=== PATIENT | male | born 1955 | race Caucasian/White ===

== ENCOUNTER 2023-11-17 05:54 | Inpatient (IN) | payer OTHER, SELFPAY ==
[2023-10-29 08:48] VITALS: BMI 38.6
[2023-11-17] VITALS (16 sets, daily range): BP systolic 103–148; BP diastolic 58–93; PULSE 63–74; RESP 11–21; TEMP 36.1–36.3; O2SAT 94–99; BMI 37.5
[2023-11-17] MEDS: ACETAMINOPHEN 325 MG TABLET 975 MG PO (06:59)
[2023-11-17] MEDS: LACTATED RINGERS 1,000 ML 42 ML IV ×3 (06:59→13:16)
--- NOTE | 2023-11-17 07:48 | PM.HP.1 ---
History of Present Illness History of Present Illness Date Patient Seen: 11/17/23 Time Patient Seen: 07:50 Date of Onset of Symptoms: 02/14/16 Chief complaint: bilateral leg pain, back pain Narrative: Mr. Chong presents to the office today referred by Dr. Martinez for lumbar radiculopathy referred by Dr. Martinez for consultation. He states he has pain and numbness in the left hip and leg that started in June 2014 and has been worsening ever since. He states the pain is in his left hip and is most noticeable when he is walking. He has numbness in the left upper leg and the left foot, he is unable to move his toes and has extreme difficulty walking. He wears bilateral AFO for bilateral chronic drop foot. His pain is in both his lower back and his right leg/hip. He has significant limitation performing activities of daily living due to his pain. He is not happy with his current quality of life and is wanting to see whether he will benefit from additional surgical treatment. He denies any bowel or bladder symptoms. [facility] Medical History History of cardioversion A-fib (~2018) Spinal stenosis, lumbar region with neurogenic claudication Hypothyroidism Acid reflux HTN (hypertension) MONSERRAT (obstructive sleep apnea) Hearing impaired Mild cataract RLS (restless legs syndrome) Surgical History History of cardiac radiofrequency ablation (05/2022) History of urologic surgery (2016) Hx of arthroscopy of left knee (2003) Hx of laminectomy (2016) Hx of laminectomy (2014) Hx of hernia repair (2016) Social History household members: significant other Smoking Status: Former smoker alcohol intake: current Meds Home Medications and Allergies Home Medications Medication Instructions Recorded Confirmed Type gabapentin 600 mg tablet 1,200 mg PO BEDTIME 10/29/23 11/17/23 History gabapentin 600 mg tablet 600 mg PO BID 10/29/23 11/17/23 History hydrocodone 7.5 mg-acetaminophen 1 tab PO DAILY 10/29/23 11/17/23 History 325 mg tablet ibuprofen 200 mg tablet (Advil) 200 - 400 mg PO BID PRN Pain 10/29/23 11/17/23 History levothyroxine 175 mcg tablet 175 mcg PO DAILY 10/29/23 11/17/23 History magnesium oxide 400 mg PO BEDTIME Leg cramps 10/29/23 11/17/23 History metoprolol succinate 25 mg 25 mg PO BID 10/29/23 11/17/23 History tablet,extended release 24 hr pantoprazole 40 mg tablet,delayed 40 mg PO DAILY 10/29/23 11/17/23 History release Allergies Allergy/AdvReac Type Severity Reaction Status Date / Time No Known Drug Allergies Allergy Verified 11/17/23 06:36 Review of Systems Review of Systems ROS: Yes All systems reviewed with the patient and are negative except as otherwise documented Exam Vital Signs (past 8 hours): - 11/17/23 06:45 Temperature 97.4 F L Pulse Rate 63 Respiratory Rate 18 Blood Pressure 148/82 H Pulse Oximetry 94 Oxygen Delivery Method Room Air Oxygen Delivery Method Room Air Back/Spine/Pelvis Other: Decreased lumbar range of motion due to pain, skin intact w/o lesions. Neuro Other: bilateral TA motor strength 4/5 decreased sensibility bilateral L3, L4, L5 R LE with + straight leg raise no DTR BLE on exam. No clonus BLE. Assessment & Plan Assessment & Plan narrative: Mr. Chong is here for f/u of his lumbar. I reviewed his new MRI L-spine with him. He has worsened central stenosis at L3-4 with spondylolisthesis. He has severe foramen stenosis at L4-5. Both L3-4, L4-5 level had prior laminectomies surgery. He has equally limiting back pain and leg pain with symptoms of neurogenic claudication limiting his mobility. He has chronic bilateral drop foot requiring bilateral AFO braces. I discussed my findings with him. I informed him his chronic drop foot may not have significant recovery due to the chronicity. He may benefit from improving his back pain and his right sided radicular pain as well as his neurogenic claudication. He may benefit from L3-4, L4-5 repeat laminectomies, bilateral total facetecmies, which will render L3-4, L4-5 level unstable and require a fusion procedure at the same time. Risks for surgery include but not limited to bleeding, infection, nerve/dura/bladder/bowel/blood vessel injury, need for additional procedure, even . Patient understands and would like to proceed with surgery. I scheduled him for L3-4, L4-5 TLIF. 15 minutes spent with patient, >50% counseling about his condition, limitations, prognosis.
[2023-11-17] MEDS: CEFAZOLIN VIAL 3 GM in SODIUM CHLORIDE 0.9% 100 ML IV ×2 (08:14→17:18)
--- NOTE | 2023-11-17 08:34 | SUR.OPER ---
Prone on spine table, head in foam head support, padded chest and pelvic supports, gel pad at knees, lower legs supported by pillows; nipples, genitalia and toes free of pressure, arms secured on foam padded arm boards at <90 degrees abduction. Tape over blanket at thigh secured to table.
[2023-11-17] MEDS: BUPIVACAINE 0.25% (PF) 60 ML, EPINEPHrine 0.15 MG INJ (08:45)
[2023-11-17] MEDS: BUPIVACAINE LIPOSOME 266 MG/20 ML VIAL INJ (08:45)
--- NOTE | 2023-11-17 11:45 | DI.RAD.S_ITS ---
PROCEDURE: XR LUMBAR SPINE 2-3V INDICATIONS: L3-4, L4-5 TLIF (ROBOT) TECHNIQUE: 3 views of the lumbar spine were acquired. COMPARISON: None. FINDINGS: Bones: Postsurgical changes compatible with L3-L4 and L4-L5 TLIF. Orthopedic hardware is in expected position. Orthopedic hardware is intact. Soft tissues: Overlying bowel gas pattern is normal. No suspicious soft tissue calcifications. IMPRESSION: Expected postsurgical change for L3-L4 and L4-L5 TLIF. Dictated by: Kati Jansen MD, PhD on 11/17/2023 at 12:09 Approved by: Kati Jansen MD, PhD on 11/17/2023 at 12:10
[2023-11-17] MEDS: fentaNYL 100 MCG/2 ML INJ IV (12:30)
--- NOTE | 2023-11-17 12:40 | PM.OP.1 ---
Operative Date/Time/Diagnoses Date of procedure: 11/17/23 Time of procedure: 07:40 Pre-op diagnosis: 1. L3-4, L4-5 spondylolisthesis 2. L3-4, L4-5 spinal stenosis 3. L3-4, L4-5 foraminal stenosis with history of laminectomies Post-op diagnosis: same Procedure & Clinicians Procedure: 1. L3-4, L4-5 Postero-lateral and posterior interbody fusion 2. L3-4, L4-5 interbody cage placement. 3. L3-4, L4-5 decompressive laminectomy with bilateral facetecomies 4. L3-4, L4-5 Posterior segmental instrumentation 5. Harris of bone marrow from iliac crest 6. Utilization of microsurgical technique and operating microscope 7. Utilization of robotic assisted navigation Same procedure as scheduled: Yes Indications: Patient has been having chronic back pain and worsening lumbar radiculopathy and symptoms of neurogenic claudication. Patient had prior L3-4 L4-5 L5-S1 laminectomy many years ago with worsening symptoms of neurogenic claudication radiculopathy and back pain. Patient was found to have recurrent central spinal stenosis severe bilateral neuroforaminal stenosis and spondylolisthesis at L3-4 L4-5. Patient failed multiple conservative management with worsening pain weakness and numbness in his lower extremity. Patient has been having difficulty performing activity of daily living. After discussing risks benefits of treatment options, patient elected proceed with surgery. Surgeon: Shani Majano Marketing Operations Specialist: Jana Boyer Click Yes if Unassisted: No Anesthesia Type: General Operative Notes Closure Type: primary Specimen(s): none sent Prosthetic devices, grafts, tissues, transplants, or devices: Globus CREO MIS screws, Rise cages Applied: catheter Estimated Blood Loss (mL): 150 Blood products transfused: none Procedure in detail: Patient was seen in the preoperative area. Risks and benefits of the surgery was discussed with the patient. Informed consent was obtained from the patient and placed in the chart. Surgical site was marked. Patient was taken to the operative room. General anesthesia was administered. Prophylactic antibiotic was given to the patient less than 30 min before the incision was made. Patient was placed into a prone position on the Kevin table. Patient's back was then prepped and draped in the sterile fashion. Time-out was performed at this time. After patient was prepped and draped, patient's PSIS was palpated and marked bilaterally. Small 1 cm incision was made over the PSIS for placement of the reference probes. Two trocar was placed into the PSIS 1 on each side. The reference probe was attached to the trocar of the reference apparatus. At this time the C-arm imaging was used to confirm AP and lateral of L3, L4-L5 vertebrae and merged the C-arm imaging using the [employer] robotic navigation system with the CT of the lumbar spine. After successful merging was completed and confirmed, skin marker was used to [place] out the skin incision using the [employer] robotic arm. Bilateral incision was made at this time. Pre templated trajectory was used and guided using the [employer] robotic navigation system for bilateral L3 L4, L5 pedicle screw placement. This was done by using the robotic arm to guide the high-speed bur to make a cortical entry point. Next a drill was placed also using the robotic arm and guided using the navigation system drilling partially through bilateral L3, L4, L5 pedicles. Next L3, L4, L5 pedicle screws it was pre templated and measured was placed onto the power courier driver and inserted into the pedicles bilaterally. After all 6 screws were placed C-arm imaging was taken of both AP and lateral to confirm the placement. Excellent placement of the screws were confirmed and a matched precisely with the pre planned screw placement using the navigation system. MARs retractor was inserted using [employer] guidence. Globus MARS retractors was placed inside the incision and docked onto the L3, L4 lamina. Using microsurgical technique and operating microscope, a L3, L4 laminectomy and L3-4, L4-5 facetectomy was performed using a Kerrison rongeur. The laminectomy and facetectomy was performed in order to decompress patient's cauda equina as well as the nerve roots exiting at the L3-4, L4-5 level. Patient was found have severe lateral recess and neural foramen stenosis which was fully decompressed after the laminectomy facetectomy. More than 75% of the facets were removed during the process of decompression rendering L3-4, L4-5 level grossly unstable and required a fusion procedure at the same time. The disc space at L3-4, L4-5 was identified, and a total diskectomy was performed at L3-4, L4-5 level. The endplates were decorticated using a rasp and shaver. The total diskectomy and decortication was performed at L3-4, L4-5 level in order to to accomplish a L3-4, L4-5 fusion. The local bone from the laminectomy and facetectomy was saved for local bone grafting. After the total diskectomy and decortication was completed, DBM bone graft material was combined with local bone that was harvested earlier. Patient was found to have significant amount of epidural scarring from prior laminectomy at L3 and L4 level. Care was taken to protect the dura as well as the neurological tissue including the thecal sac and nerve roots during the process of decompression. At this time, a separate skin is incision was made over the iliac crest. A Jamshidi needle was inserted into the iliac crest through a separate skin incision. 5 cc of bone marrow aspiration was obtained through the separate skin incision using a Jamshidi needle from the iliac crest. The bone marrow aspiration was combined with local bone and the [employer] bone grafting material. The bone grafting material was placed into the L3-4, L4-5 interbody space along with expandable cages. One cage each was inserted into the L3-4 L4-5 interbody space along with bone graft material. The cage was expanded to its maximum height using the torque limiting screwdriver. The disc preparation as well as the cage insertion were also performed under navigation guidance. After the cage was placed, AP and lateral C-arm imaging was taken to confirm placement of the cage and excellent position was confirmed. Globus MARS retractor was inserted and docked onto the L3-4, L4-5 posterolateral gutter on the right side. Using the power drill, posterior-lateral decortication was performed at L3-4, L4-5 level until bleeding cortical bone was identified. The remaining bone grafting material was placed into the L3-4, L4-5 posterior lateral gutter he order to accomplish posterolateral fusion at the L3-4, L4-5 level. At this time the tulips were attached to the L3, L4-L5 pedicle screw shanks. After measuring the length of the rods, they were inserted into the tulips of the pedicle screws and locked in place using locking caps and torque limiting screwdriver bilaterally. Total 6 caps and 2 titanium rods was used in order to complete the posterior instrumentation construct. After all the hardware was placed, and confirmed with AP and lateral C-arm imaging, the wound was then irrigated with sterile normal saline and packed with Ray-Cheryle gauze for 3 min to accomplish hemostasis. After the gauze was removed the deep fascia was closed with #1 Vicryl suture. The subcutaneous layer was closed with 2-0 Vicryl. The skin was closed with skin freddie. Patient tolerated the procedure well. There were no complications. Neuro monitoring system was used to monitor patient's neurologic status throughout entire procedure. There was no disturbance of the neural monitoring signals throughout the case. Complications: none Post-operative Condition: stable Disposition: PACU Plan for aftercare: admit to inpatient hospital
[2023-11-17] MEDS: OXYCODONE IR 5 MG TABLET PO (12:47)
--- NOTE | 2023-11-17 12:54 | SUR.PHASEI ---
Report called to
[2023-11-17] MEDS: diazePAM 10 MG/2 ML SYRINGE 5 MG IV (13:08)
--- NOTE | 2023-11-17 13:45 | SUR.PHASEI ---
Patient transferred to the floor with belongings bag x2. Report given to ROLANDA Cruz stable. IV and pantoja patent. Dressing checked with RN.
[2023-11-17] MEDS: OXYCODONE IR 10 MG TABLET PO ×4 (14:15→23:51)
[2023-11-17] MEDS: LACTATED RINGERS 1,000 ML 125 ML IV ×2 (14:49→21:20)
[2023-11-17] MEDS: GABAPENTIN 600 MG TABLET PO (20:23)
[2023-11-17] MEDS: MAGNESIUM OXIDE 400 MG TABLET PO (20:23)
[2023-11-17] MEDS: ACETAMINOPHEN 325 MG TABLET 650 MG PO (20:23)
[2023-11-17] MEDS: GABAPENTIN 600 MG TABLET 1200 MG PO (20:23)
[2023-11-17] MEDS: SENNOSIDES 8.6 MG TABLET 17.2 MG PO (20:24)
[2023-11-17] MEDS: DOCUSATE 100 MG CAPSULE PO (20:24)
[2023-11-17] MEDS: METOPROLOL ER 25 MG TABLET PO (20:24)
[2023-11-18] VITALS (11 sets, daily range): BP systolic 110–136; BP diastolic 54–73; PULSE 70–80; RESP 16–20; TEMP 35.9–38.1; O2SAT 90–95
[2023-11-18] MEDS: CEFAZOLIN VIAL 3 GM in SODIUM CHLORIDE 0.9% 100 ML IV (01:20)
[2023-11-18] MEDS: OXYCODONE IR 10 MG TABLET PO ×5 (03:45→17:19)
[2023-11-18 04:22] LABS: Hematocrit 32.2 % (41-53)
[2023-11-18] MEDS: LEVOTHYROXINE 100 MCG TABLET PO (05:49)
[2023-11-18] MEDS: LEVOTHYROXINE 75 MCG TABLET PO (05:50)
[2023-11-18] MEDS: LACTATED RINGERS 1,000 ML 125 ML IV (05:50)
--- NOTE | 2023-11-18 07:35 | PM.PNPO.1 ---
Subjective Subjective Interval history: Hilton was found sleeping was easily aroused. Says he did have some pain throughout the night but it is controlled with oral medications. Denies any nausea vomiting fever or chills. Denies any new numbness or tingling into the lower extremities. Exam Vital Signs (past 8 hours): - 11/18/23 00:54 11/18/23 06:21 Temperature 97.6 F 98.3 F Pulse Rate 70 71 Respiratory Rate 16 17 Blood Pressure 110/64 136/73 Pulse Oximetry 93 94 Oxygen Flow Rate 0 0 Oxygen Delivery Method Room Air Oxygen Flow Rate 0 Narrative Exam Narrative: Difficult for the patient to sit up therefore had to roll to his left side to examine the surgical site. Dressing appears to be clean and well-maintained. Sensation grossly intact to the lower extremities bilaterally. No pain to compression along the posterior thigh or calf. Patient is unable to dorsiflex at the ankle but this is a pre-existing condition before surgery. He is able to plantar flex bilaterally. He is able to flex at the knee and extend bilaterally. Hip flexors intact bilaterally. Objective Labs 11/18/23 03:45 Labs: Laboratory Results - last 24 hr 11/18/23 03:45 Hgb 11.0 L Hct 32.2 L PFSH Medical History History of cardioversion A-fib (~2018) Spinal stenosis, lumbar region with neurogenic claudication Hypothyroidism Acid reflux HTN (hypertension) MONSERRAT (obstructive sleep apnea) Hearing impaired Mild cataract RLS (restless legs syndrome) Surgical History History of cardiac radiofrequency ablation (05/2022) History of urologic surgery (2017) Hx of arthroscopy of left knee (2003) Hx of laminectomy (2016) Hx of laminectomy (2015) Hx of hernia repair (2016) Social History household members: significant other Smoking Status: Former smoker alcohol intake: current Assessment & Plan Post-op Postoperative Procedures: Procedures Operation Date: 11/17/23 07:45 Actual Procedure Side Surgeon p L3-4, L4-5 TLIF with posterior instrumentation-Robot Not Applicable Shani Majano MD Postoperative day: 1 Postoperative status: doing well Postoperative plan narrative: Multimodal pain control. Discontinue Lipscomb before physical therapy. Work with physical therapy. Due to the patient's pre-existing neurological condition and foot drop may require multiple days working with physical therapy before being able to discharge. Quality VTE Deep Vein Thrombosis/Pulmonary Embolism Present on Admission: No
[2023-11-18] MEDS: GABAPENTIN 600 MG TABLET PO ×2 (08:03→13:52)
[2023-11-18] MEDS: METOPROLOL ER 25 MG TABLET PO ×2 (08:04→20:36)
[2023-11-18] MEDS: DOCUSATE 100 MG CAPSULE PO ×2 (08:04→20:37)
[2023-11-18] MEDS: PANTOPRAZOLE DR 40 MG TABLET PO (08:04)
--- NOTE | 2023-11-18 09:10 | PT.IIE ---
Current Diagnoses Spondylolisthesis, lumbar region (11/17/23) Spinal stenosis, lumbar region with neurogenic claudication (11/17/23) Surgery Performed Operation Date: 11/17/23 07:45 Actual Procedures p L3-4, L4-5 TLIF with posterior instrumentation-Robot(Not Applicable) - Shani Majano MD Surgical History (Last Reviewed 11/17/23 @ 07:51 by Shani Majano MD) History of cardiac radiofrequency ablation (05/2022) History of urologic surgery (2016) Hx of arthroscopy of left knee (2003) Hx of hernia repair (2016) Hx of laminectomy (2014) Hx of laminectomy (2016) Medical History (Last Reviewed 11/17/23 @ 07:51 by Shani Majano MD) A-fib (~2018) Acid reflux Hearing impaired History of cardioversion HTN (hypertension) Hypothyroidism Mild cataract MONSERRAT (obstructive sleep apnea) RLS (restless legs syndrome) Spinal stenosis, lumbar region with neurogenic claudication Physical Therapy Inpatient Evaluation/Re-Eval M1 PT/OT-IP Prior Functional Status Start: 11/18/23 11:53 Freq: NEEDED Status: Active Protocol: Document 11/18/23 09:10 AB (Rec: 11/18/23 12:11 AB [id number]) Medical Review Prior Functional Status Medical History Reviewed Yes Communication able to make needs known Mobility and Gait pt stated that he was modified independent iwht all mobilities and ambulation without AD. pt wears B AFO and usually wears them on but able to take a few steps without AFOs from bed to living room (where pt puts his AFOs) Activities of Daily Living and IADL's . Social History Household Members significant other Living Arrangements House Number of Floors (Floors) One Floor Number of Stairs To Enter/Railing? No steps to enter the house Home Environment High Toilet,Walk in Shower Home Equipment Front Wheel Walker,Four Wheel Walker,Hand Held Shower,Grab Bars Near Toilet,Grab Bars In Shower Additional Social History Comment Pt has a walk in tub. M2 PT-IP Current Condition Start: 11/18/23 11:53 Freq: NEEDED Status: Active Protocol: Document 11/18/23 09:10 AB (Rec: 11/18/23 12:11 AB [id number]) Physical Therapy Current Condition Current Condition Evaluation Date 11/18/23 Treatment Diagnosis s/p L3-4, L4-5 TLIF; difficulty in walking Onset Date 11/17/23 M3 PT-IP Subjective Start: 11/18/23 11:53 Freq: NEEDED Status: Active Protocol: Document 11/18/23 09:10 AB (Rec: 11/18/23 12:11 AB [id number]) Subjective Physical Therapy Visit Type Type Initial Evaluation Visit Start Time 09:10 Visit Stop Time 10:05 Number of FLORAL DESIGNER Visits 0 Physical Therapy Visit Comments Patient Comments agreeable to do PT Therapy Pain Assessment Pain When Pain Assessed At Rest Location low back Intensity 7 Scale Used Numeric (0 - 10) Pain Management Techniques Distraction,Modification of Treatment,Re-positioning, Timing of Activity with Medications M4 PT-IP Mobility and Gait Start: 11/18/23 11:53 Freq: NEEDED Status: Active Protocol: Document 11/18/23 09:10 AB (Rec: 11/18/23 12:11 AB [id number]) PT-Bed Mobility Assessment Supine to Sit Supine to Sit Maximum Assistance,1 Person Assistance,2 Person Assistance ,Head of Bed Elevated Sit to Supine Sit to Supine Maximum Assistance Scooting Scooting to Edge of Bed Maximum Assistance PT-Transfer Assessment Sit to and From Stand Sit to and from Stand Maximum Assistance,2 Person Assistance,Use of Upper Extremities Equipment Transfer Assistive Device Gait Belt,Front Wheeled Walker Orthotic/Prosthetic Devices or Brace: No Comments Mobility Comments pt supine in bed and agreeable to do PT. pt's significant other in room wiht pt. obtained PLOF and home set up. post-op folder provided and reviewed contents. educated pt regarding back precautions and log roll bed mobility. BP in supine: 131/71. OT also in room to assist pt. pt completed supine to sit max Ax 1-2 and max cues. able to sit on EOB CGA. BP: 117/55. assisted pt with placido Love. pt has chronic numbness on BLE from knee down to B feet. checked BP in sitting again: 111/62. no c/o dizziness. pt sat for a few more minutes and BP checked again: 116/64. pt agreed to stand. completed sit to stand max A x 2 and max cues. increase L knee flexion in standing and (+) R knee buckling. cued pt to push down on FWW for support due to pt pulling on FWW instead of pushing down. pt stated that he cannot feel his LE. pt rested. educated on steadiness , quads activation and use of fWW for support. pt agreed to stand again. completed sit to stand max A x 2 and max cues. pt continues to have R knee buckling. sat pt back on EOB. pt wanting to just lay back in bed. completed log roll sit to supine max A and max cues. positioned pt in bed. call light and table placed within reach. Gait Assessment Comments Gait Comments unable at this time PT-Balance Assessment Sitting Balance and Reactions Static Sitting Balance Ability Good Dynamic Sitting Balance Ability Fair Standing Balance and Reactions Static Standing Balance Ability Poor Dynamic Standing Balance Ability Poor Device Used FWW M5 PT-IP Objective Assessments Start: 11/18/23 11:53 Freq: NEEDED Status: Active Protocol: Document 11/18/23 09:10 AB (Rec: 11/18/23 12:11 AB [id number]) Orientation Orientation/Cognition Level of Alertness Alert Orientation Name,Place,Situation Language Function Ability No Deficits Noted Safety Awareness Decreased Safety Awareness Memory Description Short Term Impaired Gross Range of Motion Lower Extremity ROM Assessment Within Functional Limits Strength Lower Extremity Strength Assessment Bilaterally Impaired Hip 4-/5 Knee 4-/5 Ankle 1/5 DF Coordination Assessment Gross Coordination Gross Coordination WNL Sensation Assessment Sensation Gross Sensation WNL Muscle Tone Muscle Tone WNL Yes M6 PT-IP Treatment Start: 11/18/23 11:53 Freq: NEEDED Status: Active Protocol: Document 11/18/23 09:10 AB (Rec: 11/18/23 12:11 AB [id number]) Physical Therapy Treatment Education Education Provided Precautions,Weight Bearing Status,Post-Op Packet,Safety M7 PT-IP Assessment and Plan Start: 11/18/23 11:53 Freq: NEEDED Status: Active Protocol: Document 11/18/23 09:10 AB (Rec: 11/18/23 12:11 AB [id number]) PT Summary Assessment and Plan Potential Rehabilitation Potential Fair Status of Condition at Evaluation Evolving Summary Impairments Pain,ROM,Strength,Balance, Coordination,Sensation,Tone, Cognition,Bed Mobility, Transfers,Gait,Activity Tolerance Assessment Summary pt is a 67 y/o M s/p L3-4, L 4 -5 TLIF POD 1. pt has h/o back surgeries x 3 per pt and has chronic foot drop has been using bilateral AFOs. pt also has chronic numbness on B lower leg and has difficulty with LE placement. pt requiring max A 1-2 with bed mobility and max A x 2 for standing using fWW for support with (+) R knee buckling and unable to transfer or ambulate with a FWW at this time. pt stated that his S.O. will not be able to assist him much. pt will require SNF rehab. will continue to assess progress. Goals Bed Mobility Goal Minimal Assistance Transfer Goal Minimal Assistance,Front Wheeled Walker Gait Goal Minimal Assistance,Front Wheel Walker Gait Distance 25 Other Goals improve bed mobility, transfers ambulation using FWW ~ 100 ft SBA Days to Meet Goals 10 Frequency of Treatment Frequency Of Treatment Twice a Day Treatment Plan Physical Therapy Treatment Plan Bed Mobility Training,Transfer Training,Gait Training, Therapeutic Exercise,Balance Retraining,Post Op Education, Discharge Planning,Hot or Cold Pack,Neuromuscular Re-ed, Coordination Retraining,Manual Therapy Precautions Lumbar Precautions Log Roll,No Twisting,Limit Bending,Lifting Restriction of 10 lbs,Gait Belt above Incisional Area Other Precautions falls Recommendations To Nursing Amount of Assist Needed Mechanical Lift Discharge Recommendations PT Discharge Recommendations SNF Rehab Transportation Needs at Discharge Wheelchair/Cabulance,Stretcher /Ambulance
--- NOTE | 2023-11-18 10:05 | OT.IP.EVAL ---
Current Diagnoses Spondylolisthesis, lumbar region (11/17/23) Spinal stenosis, lumbar region with neurogenic claudication (11/17/23) Surgery Performed Operation Date: 11/17/23 07:45 Actual Procedures p L3-4, L4-5 TLIF with posterior instrumentation-Robot(Not Applicable) - Shani Majano MD Past Medical History (Last Reviewed 11/17/23 @ 07:51 by Shain Majano MD) A-fib (~2018) Acid reflux Hearing impaired History of cardioversion HTN (hypertension) Hypothyroidism Mild cataract MONSERRAT (obstructive sleep apnea) RLS (restless legs syndrome) Spinal stenosis, lumbar region with neurogenic claudication Surgical History (Last Reviewed 11/17/23 @ 07:51 by Shani Majano MD) History of cardiac radiofrequency ablation (05/2022) History of urologic surgery (2016) Hx of arthroscopy of left knee (2003) Hx of hernia repair (2016) Hx of laminectomy (2014) Hx of laminectomy (2016) Occupational Therapy Inpatient Evaluation/Re-Eval M1 PT/OT-IP Prior Functional Status Start: 11/18/23 10:10 Freq: NEEDED Status: Active Protocol: Document 11/18/23 10:11 [facility] (Rec: 11/18/23 10:29 [facility] [id number]) Medical Review Prior Functional Status Communication Independent. Mobility and Gait Use of AFO for ambulation except when getting to the bathroom at night and the initial walk to the living room so able to put on his AFO 's and shoes. Activities of Daily Living and IADL's Pt had pain during ADL and IADL needs. Social History Household Members significant other Living Arrangements House Number of Floors (Floors) One Floor Number of Stairs To Enter/Railing? NO steps to enter the house Home Environment Walk in Shower Home Equipment Front Wheel Walker,Four Wheel Walker,Hand Held Shower,Grab Bars Near Toilet,Grab Bars In Shower, lift chair Additional Social History Comment Pt has a walk in tub. M2 OT-IP Current Condition Start: 11/18/23 10:10 Freq: Status: Active Protocol: Document 11/18/23 10:11 [facility] (Rec: 11/18/23 10:29 [facility] [id number]) Occupational Therapy Current Condition Current Condition Evaluation Date 11/18/23 Treatment Diagnosis S/P L3-4, L4-5 TLIF Diagnosis Onset Date 11/17/23 Post Operative Precautions Lumbar Precautions Log Roll,No Twisting,Limit Bending,Lifting Restriction of 10 lbs,Gait Belt above Incisional Area M3 OT- IP Subjective and Pain Start: 11/18/23 10:10 Freq: Status: Active Protocol: Document 11/18/23 10:11 [facility] (Rec: 11/18/23 10:29 [facility] [id number]) OT- Subjective Occupational Therapy Visit Type Type Initial Evaluation Visit Start Time 08:55 Visit Stop Time 10:05 Occupational Therapy Visit Comments Patient Comments Pt agreed to get up and his significant other in the room. PT also present for eval. Patient/Caregiver Goals TO get better. OT Pain Assessment Pain When Pain Assessed At Rest Pain Present Pain Present Pain Reported Location low back Intensity 7 Scale Used Numeric (0 - 10) M4 OT- IP ADL's Start: 11/18/23 10:10 Freq: Status: Active Protocol: Document 11/18/23 10:11 [facility] (Rec: 11/18/23 10:29 [facility] [id number]) OT [id number] Comments OT Self-Feeding Comments NO issues anticipated. OT ADL-Grooming Comments OT Grooming Comments Not performed. OT ADL-Oral Care Comments Oral Care Comments Not performed. OT ADL-Dressing General Eval Lower Body Dressing Ability Total Assistance Areas Needing Assistance Socks,Shoes,Orthosis/ Prosthesis Comments OT Dressing Comments Pt is dependent to put on his socks, shoes, and AFO's. OT ADL-Toileting General Evaluation Toileting Ability Total Assistance Comments OT Toileting Comments Lipscomb in place. Educated may be best to use the urinal at night. Assist for bowel movement or best to get a toilet paper aid/bidet. ALso wet wipes will be beneficial for hygiene needs. Spoke of LB dressing equipment that can assist with his needs but his sign. other will have to assist with his socks and AFO' s especially since pt does not have any dorsiflexion in both ankles. OT ADL-Bathing Comments OT Bathing Comments Sponge bath more appropriate at this time. M5 OT- IP IADL's Start: 11/18/23 10:10 Freq: Status: Active Protocol: Document 11/18/23 10:11 [facility] (Rec: 11/18/23 10:29 [facility] [id number]) OT-Instrumental Activities of Daily Living Deficits IADL Deficits Identified Deficits Home Safety Awareness Awareness of Need for Assistance at Home Good Awareness Ability to Problem Solve Emergency Able to Problem Solve Situations Home Safety Comments Pt has supportive significant other to assist at home pending pt's need for assist when ready for discharge. At this time pt needing extensive two person assist for all mobility needs. Meal Preparation Meal Preparation Caregiver Provides Assist Procurement Technician Procurement Technician Caregiver Provides Assist M6 OT- IP Functional Cognition Start: 11/18/23 10:10 Freq: Status: Active Protocol: Document 11/18/23 10:11 [facility] (Rec: 11/18/23 10:29 [facility] [id number]) Cognitive Factors Limiting Selfcare Function Cognitive Ability Level of Alertness Alert Patient Orientation Name,Place,Situation Attention Span Ability Capable of Focused Attention, Capable of Sustained Attention Ability to Follow Commands Able to Follow One Step Commands Cognitive Comments Cognitive Assessment Comments Pt needing initial education for back precautions, reminders to push up form the bed to stand versus try to pull on the FWW to stand. OT- Vision and Hearing OT- Hearing Assessment OT- Hearing Assessment WFL OT- Vision Assessment Visual Attentiveness WFL Occular Pursuits WFL M7 OT- IP Mobility and Balance Start: 11/18/23 10:10 Freq: Status: Active Protocol: Document 11/18/23 10:11 [facility] (Rec: 11/18/23 10:29 [facility] [id number]) OT- Bed Mobility Assessment Supine to Sit Supine to Sit Assist Maximum Assistance,1 Person Assistance,2 Person Assistance Sit to Supine Sit to Supine Assist Maximum Assistance,1 Person Assistance,2 Person Assistance OT-Transfer Assessment Sit to and From Stand Sit to and from Stand Maximum Assistance,2 Person Assistance,Use of Upper Extremities Devices Transfer Assistive Devices Gait Belt,Front Wheeled Walker Comments Mobility Comments MAXA X 1-2 to help get his trunk upright while sitting on the edge of the bed. MAXA X1 to help het his legs back into bed. MAX AX 2 to stand to the FWW, assist to help keep his right knee from externally rotating out and buckling. Pt only able to stand at this time . MAX AX 2 to help scoot to the head of the bed with support for his right knee/leg . BP supine 131/71, sitting 117 /55, 111/62, and 116/64. Pt on RA and from 88-95%. Pt nurse notified of readings. Pt tends to hold his breath and cues for deep breathing. OT- Balance Assessment Sitting Balance and Reactions Static Sitting Balance Ability Good Dynamic Sitting Balance Ability Fair Standing Balance and Reactions Static Standing Balance Ability Poor M8 OT- IP Objective Assessments Start: 11/18/23 10:10 Freq: Status: Active Protocol: Document 11/18/23 10:11 [facility] (Rec: 11/18/23 10:29 [facility] [id number]) OT Gross Range of Motion Upper Extremity Range of Motion Assessment Within Functional Limits OT Strength Upper Extremity Strength Assessment Within Functional Limits M9 OT- IP Assessment and Plan Start: 11/18/23 10:10 Freq: Status: Active Protocol: Document 11/18/23 10:11 [facility] (Rec: 11/18/23 10:29 [facility] [id number]) OT Summary Assessment and Plan Potential Rehabilitation Potential Good Analytic Complexity at Evaluation Moderate Summary OT Impairments Pain,Range of Motion,Strength, Balance,Functional Mobility, Grooming,Dressing,Toileting, Bathing,Toilet Transfers, Shower Transfers,Activity Tolerance Progress Towards Goals Slow Progress due to Pain,Slow Progress due to Medical Issues,Slow Progress due to Activity Tolerance Assessment Summary Pt MOD complexity and main barriers are pain, decreased sensation and awareness of his positioning for his LB , and now needing extensive two person assist for ADL and mobility needs. Pt at this time best to go to skilled rehab prior to going home. Goals Self-Feeding Goal Independent Grooming Goal Independent Dressing Goal Moderate Assistance Toileting Goal Minimal Assistance Bathing Goal Moderate Assistance Toilet Transfer Goal Standby Assistance Shower Transfer Goal Minimal Assistance Days to Meet Goals 20 Frequency of Treatment Frequency Of Treatment Once a Day Treatment Plan OT Treatment Plan ADL Training,Functional Mobility,Patient/Family Education,Discharge Planning Other Treatment Recommendations and Next GO over LB dressing equipment Treatment Focus Discharge Recommendations OT Discharge Recommendations SNF Rehab Transportation Needs at Discharge Wheelchair/Cabulance
[2023-11-18] MEDS: ACETAMINOPHEN 325 MG TABLET 650 MG PO ×3 (10:55→21:21)
--- NOTE | 2023-11-18 13:40 | CM.DANOTE ---
Patient is a 67 yo male who was admitted on 11/17/23 for TLIF. Pt has [facility] ADV for insurance and his PCP is Audrey Conroy. EMR was reviewed. Per Ortho, pt tolerated procedure well and has hx of multiple back surgeries and likely here a couple days to work with PT/OT before stable to discharge due to cormorbidities. PT/OT ordered and pending. SW met bedside with pt and Sig Other Candace and explained role and they confirm they live together in [facility] and both are active and independent at baseline. Pt does not typically use DME for ambulation but has FWW at home for use as needed and pt still drives. Sig Other confirms she is available for assist at d/c. Pt denies any hx of HH or SNF and states after his other two back surgeries he was able to discharge home. SW explained the services and coverage of SNF and HH and Sig Other plans to participate in CG training with PT/OT to confirm they can safely d/c home. Pt's preference is to d/c home and he would be agreeable to HH if needed. Plan: SW to follow closely for PT/OT eval and recommendations to determine discharge planning needs and if pt safe for d/c home when stable. RAO Graf Discharge Planning/Care Management CM Discharge Assessment Start: 11/18/23 13:39 Freq: Status: Active Protocol: Document 11/18/23 13:39 [facility] (Rec: 11/18/23 13:40 BF [id number]) Discharge Planning Assessment Assigned Commercial Sales Consultant RAO Marcelino DPOA/Assigned Designee Name Sig Other Candace Contact Information [phone] Advance Directives? Yes Advance Directives on File No History Provided By Patient,Significant Other, Medical Record Has Patient been admitted in last 30 No days? Prior Living Arrangements House Household Members significant other Type of transporation used prior to Drives own vehicle admit Independent with ADL's Yes Is patient alert and oriented? Yes Caregiver for Another No Community Services used prior to Physical Therapy admission: DME Already Rented / Owned FWW / Walker Comment Pending PT/OT recommendations Barriers to Discharge No Discharge Plan Home Community Services Physical Therapy Transportation Arrangement Sig Other Candace willing to transport at d/c Additional Comment Pending PT/OT eval Whiteboard Updated in Patient Room with Yes name and ext. # of Commercial Sales Consultant Review Status In Process Please Provide Date Initial DC 02/20/24 Assessment Was Performed Next Review Type Continued Stay Review Pre-Anesthesia Assessment Start: 10/29/23 08:48 Freq: Status: Complete Protocol: Document 10/29/23 08:48 [facility] (Rec: 10/29/23 09:41 [facility] [id number]) Pre-Anesthesia Assessment Patient Information Reviewed Via Phone Assessment Assessment Completed With Patient Diagnostic Results BMP/CMP,CBC,EKG Comment Outside labs/EKG scanned Primary Care Provider Audrey Conroy Seen Specialist in Last 12 Months Yes Specialist Seen Instruction Dean,Orthopedist Primary Language Sinhala Parachute Folder Required No Height 182.88 cm Weight 129.274 kg Body Mass Index (BMI) 38.6 Hearing Ability Normal Visual Impairment No Limitations Visual Assist None Dentition Type Teeth, Natural Present,Teeth, Broken,Teeth, Missing Barriers to Learning None Hx Anesthesia Reactions No Hx Family Anesthesia Reaction No Hx Malignant Hyperthermia No Hx Blood Transfusions No Anesthesia Review Requested No Beater Lead No alcohol intake current alcohol intake frequency 3 or more drinks per day Smoking Status Former smoker how long ago did patient quit smoking Quit approx 2009 Substance Use Type does not use Pain Present Pain Reported Musculoskeletal Symptoms Abnormal Gait,Back Pain, Difficulty Walking,Joint Pain, Radiating Pain into Limb History of Falling (Recent or History of Yes ) Patient is completely paralyzed or No completely immobile Mental Status Oriented to own ability Comment Uses AFOs for ambulation Is patient on oxygen? No Does patient have MORROW/SOB No Hx Sleep Apnea Yes: Has not persued CPAP therapy Currently Taking a Beta Addi Yes: Metoprolol Can You Climb a Flight of Stairs Without No SOB Hx Chest Pain No Hx SOB No Hx Syncope or Dizziness No Anti-Coagulant Therapy No Has a Instruction Dean Yes Instruction Dean name Dr. Resendez @ [facility] Cardiac Testing No Hx Pacemaker/ICD No Pacemaker Rep Required? No Diet Type At Home Regular Dysphagia No Gastrointestinal Symptoms Reflux Genitourinary Symptoms Change in Urinary Stream, Difficulty Urinating Bladder Pattern Retention Urinary Catheter Present No Hx Urinary Self Catheterization No Diabetes Yes HgbA1C 5.8 Date 08/20/23 Hx Drug Resistant Organism No Presence of External or Internal Medical Yes Devices Received a COVID vaccine? Yes Received all doses? Yes Marital Status Single Lives With significant other Current Living Arrangements House Number of Floors (Floors) One Floor Support System Significant Other Does the Patient Have Assistance After Yes Surgery Patient Discharge Plan Description Return Home Comment Pt advised 2 day length of stay per surgeon Feels Safe in Current Environment Yes Been Physically Hurt or Threatened By a No Person in Current Environment Do you have thoughts of harming yourself None or others? Are you currently considering suicide? No Do you have a plan to hurt yourself or No Plan others? Do You Have Any Spiritual Beliefs That No May Affect Your HC Choices? Do You Have Any Cultural Practices That No May Affect Your HC Choices? Who Can We Speak to About Patient's Care Family, friends Identifying Code for Release of Patient Declines to issue Information Health Care Proxy/Next of Kin Candace (S.O.) Health Care Proxy Emergency Contact Name Candace (S.O.) Emergency Contact Advance Directives? Yes Advance Directives on File No Requested Patient Bring Advanced Yes Directives DOS Power of Urban Renewal Manager Yes Power of Urban Renewal Manager Name Candace (S.O.) Power of Urban Renewal Manager PAC Instructions Durable medical equipment, Medications to take/avoid, Nasal antibiotic,No ETOH/ petroleum product on skin DOS, NPO,Pre-surgical wash,Sensory aids,Sturdy shoes/comfortable clothes,Do not bring valuables and remove jewelry
--- NOTE | 2023-11-18 13:45 | PT.IPTN ---
Current Diagnoses Spondylolisthesis, lumbar region (11/17/23) Spinal stenosis, lumbar region with neurogenic claudication (11/17/23) Surgery Performed Operation Date: 11/17/23 07:45 Actual Procedures p L3-4, L4-5 TLIF with posterior instrumentation-Robot(Not Applicable) - Shani Majano MD Physical Therapy Treatment Note M2 PT-IP Current Condition Start: 11/18/23 11:53 Freq: NEEDED Status: Active Protocol: Document 11/18/23 09:10 AB (Rec: 11/18/23 12:11 AB [id number]) Physical Therapy Current Condition Current Condition Evaluation Date 11/18/23 Treatment Diagnosis s/p L3-4, L4-5 TLIF; difficulty in walking Onset Date 11/17/23 M3 PT-IP Subjective Start: 11/18/23 11:53 Freq: NEEDED Status: Active Protocol: Document 11/18/23 13:45 AB (Rec: 11/18/23 16:33 AB [id number]) Subjective Physical Therapy Visit Type Type Treatment Note Visit Start Time 13:45 Visit Stop Time 14:35 Number of ASSISTANT WOMEN'S BASKETBALL COACH Visits 0 Physical Therapy Visit Comments Patient Comments agreeable to do PT Therapy Pain Assessment Pain When Pain Assessed At Rest Location low back Intensity 6 Scale Used Numeric (0 - 10) Pain Management Techniques Distraction,Modification of Treatment,Re-positioning, Timing of Activity with Medications M4 PT-IP Mobility and Gait Start: 11/18/23 11:53 Freq: NEEDED Status: Active Protocol: Document 11/18/23 13:45 AB (Rec: 11/18/23 16:33 AB [id number]) PT-Bed Mobility Assessment Rolling Type of Rolling Log Rolling Level of Assist Minimal Assistance Supine to Sit Supine to Sit Moderate Assistance Sit to Supine Sit to Supine Minimal Assistance,1 Person Assistance PT-Transfer Assessment Sit to and From Stand Sit to and from Stand Maximum Assistance,2 Person Assistance,Use of Upper Extremities Equipment Transfer Assistive Device Gait Belt,Front Wheeled Walker Orthotic/Prosthetic Devices or Brace: No Comments Mobility Comments pt supine in bed and agreeable to do PT. pt stated that RLE is numb even on upper thigh area. completed log roll supine to sit mod A and cues. able to sit on EOB SBA. assisted with putting bilateral AFOs on. educated pt on sit <>stand techniques and quads activation in standing. pt completed sit to stand max A x 2 and max cues. required max A x 2 for standing balance using FWW. max A for blocking and preventing R knee from buckling. pt tolerated ~ 30 sec of standing. pt rested and agreed to stand again. completed sit to stand max A x 2 but with increase R knee buckling unable PT unable to stabilize despite max A provided. instructed pt to sit back on the EOB. pt scooted towards the HOB min A for blocking LE to prevent from sliding forward when pushing. completed log roll sit to supine min A and cues. positioned pt in bed. call light and table placed within reach. pt completed quads and glute sets supine in bed. educated to do HEP as tolerated and agreed. Gait Assessment Comments Gait Comments unable at this time M5 PT-IP Objective Assessments Start: 11/18/23 11:53 Freq: NEEDED Status: Active Protocol: Document 11/18/23 09:10 AB (Rec: 11/18/23 12:11 AB [id number]) Orientation Orientation/Cognition Level of Alertness Alert Orientation Name,Place,Situation Language Function Ability No Deficits Noted Safety Awareness Decreased Safety Awareness Memory Description Short Term Impaired Gross Range of Motion Lower Extremity ROM Assessment Within Functional Limits Strength Lower Extremity Strength Assessment Bilaterally Impaired Hip 4-/5 Knee 4-/5 Ankle 1/5 DF Coordination Assessment Gross Coordination Gross Coordination WNL Sensation Assessment Sensation Gross Sensation WNL Muscle Tone Muscle Tone WNL Yes M6 PT-IP Treatment Start: 11/18/23 11:53 Freq: NEEDED Status: Active Protocol: Document 11/18/23 13:45 AB (Rec: 11/18/23 16:33 AB [id number]) Physical Therapy Treatment Education Education Provided Safety M7 PT-IP Assessment and Plan Start: 11/18/23 11:53 Freq: NEEDED Status: Active Protocol: Document 11/18/23 13:45 AB (Rec: 11/18/23 16:33 AB [id number]) PT Summary Assessment and Plan Potential Rehabilitation Potential Fair Summary Impairments Pain,ROM,Strength,Balance, Coordination,Sensation,Tone, Cognition,Bed Mobility, Transfers,Gait,Activity Tolerance Progress Towards Goals Slow Progress due to Pain,Slow Progress due to Medical Issues,Slow Progress due to Activity Tolerance,Slow Progress - Other Assessment Summary pt continues to require max A x 2 with sit to stand and with (+) R knee buckling requiring max A for stabilization. pt will require SNF rehab to improve strength and mobility. Goals Bed Mobility Goal Minimal Assistance Transfer Goal Minimal Assistance,Front Wheeled Walker Gait Goal Minimal Assistance,Front Wheel Walker Gait Distance 25 Other Goals improve bed mobility, transfers ambulation using FWW ~ 100 ft SBA Days to Meet Goals 10 Frequency of Treatment Frequency Of Treatment Twice a Day Treatment Plan Physical Therapy Treatment Plan Bed Mobility Training,Transfer Training,Gait Training, Therapeutic Exercise,Balance Retraining,Post Op Education, Discharge Planning,Hot or Cold Pack,Neuromuscular Re-ed, Coordination Retraining,Manual Therapy Precautions Lumbar Precautions Log Roll,No Twisting,Limit Bending,Lifting Restriction of 10 lbs,Gait Belt above Incisional Area Other Precautions falls Recommendations To Nursing Amount of Assist Needed Mechanical Lift Discharge Recommendations PT Discharge Recommendations SNF Rehab Transportation Needs at Discharge Wheelchair/Cabulance,Stretcher /Ambulance
--- NOTE | 2023-11-18 18:51 | PC.NURSE ---
: Pt declined pantoja removal. He has bilat foot drop and wears bilat braces as well. He received exparel and has no control of his rt foot at this time. Legs are buckling when he got up w/PT. 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 Will see if pt has more leg control tomorrow.
[2023-11-18] MEDS: GABAPENTIN 600 MG TABLET 1200 MG PO (20:35)
[2023-11-18] MEDS: SENNOSIDES 8.6 MG TABLET 17.2 MG PO (20:36)
[2023-11-18] MEDS: MAGNESIUM OXIDE 400 MG TABLET PO (20:37)
[2023-11-19] VITALS (10 sets, daily range): BP systolic 104–134; BP diastolic 60–74; PULSE 62–104; RESP 16–18; TEMP 36.9–37.3; O2SAT 93–96
[2023-11-19] MEDS: ACETAMINOPHEN 325 MG TABLET 650 MG PO ×3 (02:08→20:58)
[2023-11-19] MEDS: OXYCODONE IR 10 MG TABLET PO ×6 (02:08→20:59)
[2023-11-19] MEDS: LEVOTHYROXINE 75 MCG TABLET PO (05:45)
[2023-11-19] MEDS: LEVOTHYROXINE 100 MCG TABLET PO (05:45)
[2023-11-19] MEDS: polyethylene glycoL 3350 17 GM POWD.PACK PO (08:06)
[2023-11-19] MEDS: MAGNESIUM HYDROXIDE 30 ML UDC PO (08:06)
[2023-11-19] MEDS: DOCUSATE 100 MG CAPSULE PO ×2 (08:07→20:59)
[2023-11-19] MEDS: PANTOPRAZOLE DR 40 MG TABLET PO (08:07)
[2023-11-19] MEDS: GABAPENTIN 600 MG TABLET PO ×2 (08:07→11:14)
[2023-11-19] MEDS: METOPROLOL ER 25 MG TABLET PO ×2 (08:07→21:00)
--- NOTE | 2023-11-19 08:33 | P.PN_ITS ---
Subjective Subjective Date Patient Seen: 11/19/23 Time Patient Seen: 08:33 Interval history: Patient back pain is moderate to severe. Patient has had difficulty getting out of bed yesterday due to the bilateral lower extremity numbness and tingling. Patient had bilateral lower extremities drop foot prior to surgery. Patient has bilateral AFOs for chronic bilateral drop foot. Exam Vital Signs (past 8 hours): - 11/19/23 00:52 11/19/23 04:36 11/19/23 07:22 Temperature 98.5 F Pulse Rate 85 Respiratory Rate 17 Blood Pressure 110/60 114/70 Pulse Oximetry 96 95 Oxygen Delivery Method Room Air Oxygen Flow Rate 2 11/19/23 07:48 Temperature Pulse Rate 65 Respiratory Rate 18 Blood Pressure 111/63 Pulse Oximetry 96 Oxygen Delivery Method Oxygen Flow Rate 0 Oxygen Delivery Method Room Air Oxygen Flow Rate 0 Narrative Exam Narrative: 59-year-old male resting comfortably in bed in no apparent distress. Patient's is at bedside. Dressing is clean, dry and intact. Patient has grossly intact sensation to light touch bilateral thighs. Patient able to fire his quads. Patient barely able to wiggle his toes bilateral lower extremities. Patient able to plantar flex on the left. Both legs are warm and dry. Const General: cooperative and comfortable Nutritional Appearance: well nourished (BMI 37.6) Orientation: alert Resp Effort & Inspection: normal respiratory effort and able to speak in complete sentences Objective Labs 11/18/23 03:45 [facility] Medical History History of cardioversion A-fib (~2018) Spinal stenosis, lumbar region with neurogenic claudication Hypothyroidism Acid reflux HTN (hypertension) MONSERRAT (obstructive sleep apnea) Hearing impaired Mild cataract RLS (restless legs syndrome) Surgical History History of cardiac radiofrequency ablation (05/2022) History of urologic surgery (2016) Hx of arthroscopy of left knee (2003) Hx of laminectomy (2016) Hx of laminectomy (2014) Hx of hernia repair (2016) Social History household members: significant other Smoking Status: Former smoker alcohol intake: current Assessment & Plan Post-op Postoperative Procedures: Procedures Operation Date: 11/17/23 07:45 Actual Procedure Side Surgeon p L3-4, L4-5 TLIF with posterior instrumentation-Robot Not Applicable Shani Majano MD Postoperative day: 2 Postoperative status: marginal pain control Postoperative status narrative: Stable Postoperative plan: routine post-op care Postoperative plan narrative: Discontinue Lipscomb catheter Multimodal pain management Mobilize with physical therapy Disposition patient is requiring mechanical lift, likely halfway facility placement tomorrow Quality VTE Deep Vein Thrombosis/Pulmonary Embolism Present on Admission: No
--- NOTE | 2023-11-19 09:33 | PT.IPTN ---
Current Diagnoses Spondylolisthesis, lumbar region (11/17/23) Spinal stenosis, lumbar region with neurogenic claudication (11/17/23) Surgery Performed Operation Date: 11/17/23 07:45 Actual Procedures p L3-4, L4-5 TLIF with posterior instrumentation-Robot(Not Applicable) - Shani Majano MD Physical Therapy Treatment Note M2 PT-IP Current Condition Start: 11/18/23 11:53 Freq: NEEDED Status: Active Protocol: Document 11/18/23 09:10 AB (Rec: 11/18/23 12:11 AB [id number]) Physical Therapy Current Condition Current Condition Evaluation Date 11/18/23 Treatment Diagnosis s/p L3-4, L4-5 TLIF; difficulty in walking Onset Date 11/17/23 M3 PT-IP Subjective Start: 11/18/23 11:53 Freq: NEEDED Status: Active Protocol: Document 11/19/23 10:08 TS (Rec: 11/19/23 10:26 TS [id number]) Subjective Physical Therapy Visit Type Type Treatment Note Visit Start Time 09:33 Visit Stop Time 10:07 Number of SERVICE SPRINKLER HELPER Visits 1 Physical Therapy Visit Comments Patient Comments Pt found resting in bed, reports pain is high but feeling better than yesterday. He would liek to stay another night in hospital. He is agreeable to PT. Therapy Pain Assessment Pain When Pain Assessed At Rest Pain Present Pain Present Pain Reported M4 PT-IP Mobility and Gait Start: 11/18/23 11:53 Freq: NEEDED Status: Active Protocol: Document 11/19/23 10:08 TS (Rec: 11/19/23 10:26 TS [id number]) PT-Bed Mobility Assessment Rolling Type of Rolling Log Rolling Level of Assist Standby Assistance Supine to Sit Supine to Sit Minimal Assistance,1 Person Assistance Sit to Supine Sit to Supine Minimal Assistance,1 Person Assistance PT-Transfer Assessment Sit to and From Stand Sit to and from Stand Contact Guard Assistance, Minimal Assistance,1 Person Assistance Equipment Transfer Assistive Device Gait Belt,Front Wheeled Walker Orthotic/Prosthetic Devices or Brace: No Comments Mobility Comments Logroll to L side SBA with use of rails. Supine to sit Niya for uprighting trunk, pt required cues for LEs hanging over EOB and pushi through elbow. AFO's don on pt prior to STS. STS from elevated bed Niya with use of FWW, pt required cues for pushing from bed. He ambulated in the room ~30' CGA/SBA with use of FWW, pt had no buckling and denied any dizziness/lightheadedness . Pt sat back EOB for rest break, recalled 3/3 spinal precautions. STS from bed CGA with FWW, pt demonstrates good carryover. He ambulated another ~30'SBA with FWW, had no buckling. Sit to supine into bed Niya for LEs into bed . Pt was left in bed, nursing in room tending to needs. Gait Assessment Gait Gait Assistance Required: Standby Assistance,Contact Guard Assist,1 Person Assist Distance (Feet) 60 Able to Maintain Weight Bearing Status Yes During Gait Assistive Devices Assistive Device Front Wheeled Walker Orthotic/Prosthetic Devices or Brace: Yes Gait Deviations General Gait Pattern Decreased Stride Length, Decreased Feet Clearance,Step- to Gait Factors Limiting Gait Function Factors Limiting Gait Function Decreased Activity Tolerance, Decreased Strength,Limited Range of Motion,Pain,Poor Balance Comments Gait Comments See mobility comments PT-Balance Assessment Sitting Balance and Reactions Static Sitting Balance Ability Good Dynamic Sitting Balance Ability Fair Standing Balance and Reactions Static Standing Balance Ability Good Dynamic Standing Balance Ability Fair Device Used FWW M5 PT-IP Objective Assessments Start: 11/18/23 11:53 Freq: NEEDED Status: Active Protocol: Document 11/18/23 09:10 AB (Rec: 11/18/23 12:11 AB [id number]) Orientation Orientation/Cognition Level of Alertness Alert Orientation Name,Place,Situation Language Function Ability No Deficits Noted Safety Awareness Decreased Safety Awareness Memory Description Short Term Impaired Gross Range of Motion Lower Extremity ROM Assessment Within Functional Limits Strength Lower Extremity Strength Assessment Bilaterally Impaired Hip 4-/5 Knee 4-/5 Ankle 1/5 DF Coordination Assessment Gross Coordination Gross Coordination WNL Sensation Assessment Sensation Gross Sensation WNL Muscle Tone Muscle Tone WNL Yes M6 PT-IP Treatment Start: 11/18/23 11:53 Freq: NEEDED Status: Active Protocol: Document 11/19/23 10:08 TS (Rec: 11/19/23 10:26 [id number]) Physical Therapy Treatment Education Education Provided Safety M7 PT-IP Assessment and Plan Start: 11/18/23 11:53 Freq: NEEDED Status: Active Protocol: Document 11/19/23 10:08 TS (Rec: 11/19/23 10:26 TS [id number]) PT Summary Assessment and Plan Potential Rehabilitation Potential Fair Summary Impairments Pain,ROM,Strength,Balance, Coordination,Sensation,Tone, Cognition,Bed Mobility, Transfers,Gait,Activity Tolerance Progress Towards Goals Progressing Toward Goals Assessment Summary Hilton is making progress with his mobility this session. He is Niya for supine to sit from flat bed and requires cues for sequencing. He performed STS x1MinA and x1CGA with use of FWW and elevated bed. He ambulated in room 30'X2 with use of FWW, had no buckling or LOB, c/o increasing pain. PT is recommending pt return home with 24/7 assist at this time . Pt would like to stay another night and is hoping to improve more before d/c home. Goals Bed Mobility Goal Minimal Assistance Transfer Goal Minimal Assistance,Front Wheeled Walker Gait Goal Minimal Assistance,Front Wheel Walker Gait Distance 25 Other Goals improve bed mobility, transfers ambulation using FWW ~ 100 ft SBA Days to Meet Goals 10 Frequency of Treatment Frequency Of Treatment Twice a Day Treatment Plan Physical Therapy Treatment Plan Bed Mobility Training,Transfer Training,Gait Training, Therapeutic Exercise,Balance Retraining,Post Op Education, Discharge Planning,Hot or Cold Pack,Neuromuscular Re-ed, Coordination Retraining,Manual Therapy Precautions Lumbar Precautions Log Roll,No Twisting,Limit Bending,Lifting Restriction of 10 lbs,Gait Belt above Incisional Area Other Precautions falls Recommendations To Nursing Amount of Assist Needed 1 Person Assist Discharge Recommendations PT Discharge Recommendations Home with 24/7 Assist Available,Home Health Transportation Needs at Discharge Private Vehicle,Wheelchair/ Cabulance
--- NOTE | 2023-11-19 12:00 | OT.IPNOTE ---
Checked on pt for OT and pt states too tired and wanting to sleep.
--- NOTE | 2023-11-19 14:35 | PT.IPTN ---
Current Diagnoses Spondylolisthesis, lumbar region (11/17/23) Spinal stenosis, lumbar region with neurogenic claudication (11/17/23) Surgery Performed Operation Date: 11/17/23 07:45 Actual Procedures p L3-4, L4-5 TLIF with posterior instrumentation-Robot(Not Applicable) - Shani Majano MD Physical Therapy Treatment Note M2 PT-IP Current Condition Start: 11/18/23 11:53 Freq: NEEDED Status: Active Protocol: Document 11/18/23 09:10 AB (Rec: 11/18/23 12:11 AB [id number]) Physical Therapy Current Condition Current Condition Evaluation Date 11/18/23 Treatment Diagnosis s/p L3-4, L4-5 TLIF; difficulty in walking Onset Date 11/17/23 M3 PT-IP Subjective Start: 11/18/23 11:53 Freq: NEEDED Status: Active Protocol: Document 11/19/23 15:56 TS (Rec: 11/19/23 16:11 TS [id number]) Subjective Physical Therapy Visit Type Type Treatment Note Visit Start Time 14:35 Visit Stop Time 14:52 Notes Spouse in room Number of VICE PRESIDENT QUALITY Visits 2 Physical Therapy Visit Comments Patient Comments pt reports just having pain meds and pain is lower this afternoon. He is having mores sensation in his R quad today, pt is agreeable to PT. Therapy Pain Assessment Pain When Pain Assessed At Rest Pain Present Pain Present Pain Reported M4 PT-IP Mobility and Gait Start: 11/18/23 11:53 Freq: NEEDED Status: Active Protocol: Document 11/19/23 15:56 TS (Rec: 11/19/23 16:11 TS [id number]) PT-Bed Mobility Assessment Rolling Type of Rolling Log Rolling Level of Assist Standby Assistance Supine to Sit Supine to Sit Standby Assistance Sit to Supine Sit to Supine Standby Assistance Scooting Scooting to Edge of Bed Standby Assistance PT-Transfer Assessment Sit to and From Stand Sit to and from Stand Contact Guard Assistance,1 Person Assistance Equipment Transfer Assistive Device Gait Belt,Front Wheeled Walker Orthotic/Prosthetic Devices or Brace: Yes Comments Mobility Comments Logroll to L side SBA, pt demonstrates good carryover of sequencing. Supine to sit SBA with BUE support to upright trunk. pt sat EOB and required donning of AFO. STS from elevated bed CGA with use of FWW, R not buckling. He ambulated in room ~100' SBA with step to gait and FWW. Sit to supine into bed SBA, cues provided for logroll sequencing. Pt was left in bed , all needs met. Gait Assessment Gait Gait Assistance Required: Standby Assistance,1 Person Assist Distance (Feet) 100 Able to Maintain Weight Bearing Status Yes During Gait Assistive Devices Assistive Device Gait Belt,Front Wheeled Walker Orthotic/Prosthetic Devices or Brace: Yes Gait Deviations General Gait Pattern Decreased Stride Length, Decreased Feet Clearance,Step- to Gait Factors Limiting Gait Function Factors Limiting Gait Function Decreased Activity Tolerance, Decreased Strength,Limited Range of Motion,Pain,Poor Balance Comments Gait Comments See mobility comments PT-Balance Assessment Sitting Balance and Reactions Static Sitting Balance Ability Good Dynamic Sitting Balance Ability Fair Standing Balance and Reactions Static Standing Balance Ability Good Dynamic Standing Balance Ability Fair Device Used FWW M5 PT-IP Objective Assessments Start: 11/18/23 11:53 Freq: NEEDED Status: Active Protocol: Document 11/18/23 09:10 AB (Rec: 11/18/23 12:11 AB [id number]) Orientation Orientation/Cognition Level of Alertness Alert Orientation Name,Place,Situation Language Function Ability No Deficits Noted Safety Awareness Decreased Safety Awareness Memory Description Short Term Impaired Gross Range of Motion Lower Extremity ROM Assessment Within Functional Limits Strength Lower Extremity Strength Assessment Bilaterally Impaired Hip 4-/5 Knee 4-/5 Ankle 1/5 DF Coordination Assessment Gross Coordination Gross Coordination WNL Sensation Assessment Sensation Gross Sensation WNL Muscle Tone Muscle Tone WNL Yes M6 PT-IP Treatment Start: 11/18/23 11:53 Freq: NEEDED Status: Active Protocol: Document 11/19/23 15:56 TS (Rec: 11/19/23 16:11 [id number]) Physical Therapy Treatment Education Education Provided Safety M7 PT-IP Assessment and Plan Start: 11/18/23 11:53 Freq: NEEDED Status: Active Protocol: Document 11/19/23 15:56 TS (Rec: 11/19/23 16:11 TS [id number]) PT Summary Assessment and Plan Potential Rehabilitation Potential Fair Summary Impairments Pain,ROM,Strength,Balance, Coordination,Sensation,Tone, Cognition,Bed Mobility, Transfers,Gait,Activity Tolerance Progress Towards Goals Progressing Toward Goals Assessment Summary Hilton continues to make progress with his mobility. He progressed his gait to ~100' in room SBA with use of FWW. He demonstrates good carryover of logroll and supine to sit sequencing, required SBA only. Pt reports having increased sensation in R quad this session. PT is recommending pt return home with 24/7 assist from spouse. Goals Bed Mobility Goal Minimal Assistance Transfer Goal Minimal Assistance,Front Wheeled Walker Gait Goal Minimal Assistance,Front Wheel Walker Gait Distance 25 Other Goals improve bed mobility, transfers ambulation using FWW ~ 100 ft SBA Days to Meet Goals 10 Frequency of Treatment Frequency Of Treatment Twice a Day Treatment Plan Physical Therapy Treatment Plan Bed Mobility Training,Transfer Training,Gait Training, Therapeutic Exercise,Balance Retraining,Post Op Education, Discharge Planning,Hot or Cold Pack,Neuromuscular Re-ed, Coordination Retraining,Manual Therapy Precautions Lumbar Precautions Log Roll,No Twisting,Limit Bending,Lifting Restriction of 10 lbs,Gait Belt above Incisional Area Other Precautions falls Recommendations To Nursing Amount of Assist Needed Standby Assistance Discharge Recommendations PT Discharge Recommendations Home with 24/7 Assist Available,Home Health Transportation Needs at Discharge Private Vehicle
[2023-11-19] MEDS: MAGNESIUM OXIDE 400 MG TABLET PO (20:59)
[2023-11-19] MEDS: GABAPENTIN 600 MG TABLET 1200 MG PO (20:59)
[2023-11-19] MEDS: SENNOSIDES 8.6 MG TABLET 17.2 MG PO (20:59)
[2023-11-20] VITALS: BP 123/65; PULSE 65; RESP 17; TEMP 36.4; O2SAT 93
[2023-11-20 01:07] VITALS: PULSE 65
[2023-11-20] MEDS: OXYCODONE IR 10 MG TABLET PO ×3 (02:43→09:52)
[2023-11-20] MEDS: LEVOTHYROXINE 100 MCG TABLET PO (06:20)
[2023-11-20] MEDS: LEVOTHYROXINE 75 MCG TABLET PO (06:20)
[2023-11-20] MEDS: ACETAMINOPHEN 325 MG TABLET 650 MG PO (06:21)
--- NOTE | 2023-11-20 07:31 | P.DS_ITS ---
History of Present Illness History of Present Illness Date Patient Seen: 11/20/23 Time Patient Seen: 07:31 Chief complaint: bilateral leg pain, back pain Narrative: Patient states his pain is well managed. Denies fever or chills. No nausea or vomiting. Discharge Providers Provider Date of admission: 11/17/23 05:54 Discharge Date: 11/20/23 Primary care physician: Audrey Conroy MD Consults: 11/17/23 13:34 Consult to Occupational Therapy Evaluate & Treat Comment: Physician Instructions: Evaluate and treat Consult to Physical Therapy Evaluate & Treat Comment: Physician Instructions: Evaluate and Treat Discharge provider: Pramod Franz PA-C Summary Hospital Course Discharge Diagnosis: 1. L3-4, L4-5 spondylolisthesis 2. L3-4, L4-5 spinal stenosis 3. L3-4, L4-5 foraminal stenosis with history of laminectomies Hospital Course: 1. L3-4, L4-5 Postero-lateral and posterior interbody fusion 2. L3-4, L4-5 interbody cage placement. 3. L3-4, L4-5 decompressive laminectomy with bilateral facetecomies 4. L3-4, L4-5 Posterior segmental instrumentation 5. [place] of bone marrow from iliac crest 6. Utilization of microsurgical technique and operating microscope 7. Utilization of robotic assisted navigation Same procedure as scheduled: Yes Indications: Patient has been having chronic back pain and worsening lumbar radiculopathy and symptoms of neurogenic claudication. Patient had prior L3-4 L4-5 L5-S1 laminectomy many years ago with worsening symptoms of neurogenic claudication radiculopathy and back pain. Patient was found to have recurrent central spinal stenosis severe bilateral neuroforaminal stenosis and spondylolisthesis at L3-4 L4-5. Patient failed multiple conservative management with worsening pain weakness and numbness in his lower extremity. Patient has been having difficulty performing activity of daily living. After discussing risks benefits of treatment options, patient elected proceed with surgery. Surgeon: Shani Majano [place] Miner: Jana Boyer Click Yes if Unassisted: No Anesthesia Type: General Operative Notes Closure Type: primary Specimen(s): none sent Prosthetic devices, grafts, tissues, transplants, or devices: Globus CREO MIS screws, Rise cages Applied: catheter Estimated Blood Loss (mL): 150 Blood products transfused: none Patient admitted for the above-mentioned procedure. Patient consented to the same. Patient underwent L3-L4, L4-L5 fusion November 17, 2023. Patient back in his room recovering well as in stable condition. Patient progressing as expected. Patient to mobilize with physical therapy. Patient has bilateral chronic foot drop. Patient has bilateral AFOs. Patient will be discharged home today after physical therapy if safe for home environment. Status at Discharge Cognitive/behavioral status at discharge: at baseline, oriented Functional status at discharge: uses cane/walker Overall status at discharge: patient is progressing back to baseline Exam Vital Signs (past 8 hours): - 11/20/23 00:00 11/20/23 01:07 Temperature 97.6 F Pulse Rate 65 65 Respiratory Rate 17 Blood Pressure 123/65 Pulse Oximetry 93 Oxygen Flow Rate 0 Oxygen Delivery Method Room Air Oxygen Flow Rate 0 Narrative Exam Narrative: 59-year-old male resting comfortably in bed in no apparent distress. Patient's is at bedside. Dressing is clean, dry and intact. Patient has grossly intact sensation to light touch bilateral thighs. Patient able to fire his quads. Patient barely able to wiggle his toes bilateral lower extremities. Patient able to plantar flex on the left. Both legs are warm and dry. Const General: cooperative and comfortable Nutritional Appearance: well nourished Resp Effort & Inspection: normal respiratory effort and able to speak in complete sentences Objective Labs 11/18/23 03:45 PFSH Medical History History of cardioversion A-fib (~2018) Spinal stenosis, lumbar region with neurogenic claudication Hypothyroidism Acid reflux HTN (hypertension) MONSERRAT (obstructive sleep apnea) Hearing impaired Mild cataract RLS (restless legs syndrome) Surgical History History of cardiac radiofrequency ablation (05/2022) History of urologic surgery (2017) Hx of arthroscopy of left knee (2003) Hx of laminectomy (2016) Hx of laminectomy (2014) Hx of hernia repair (2016) Social History household members: significant other Smoking Status: Former smoker alcohol intake: current Discharge Assessment & Plan Assessment and Plan Assessment: Patient progressing as expected Plan of Treatment: Multimodal pain management Limit bending, twisting, lifting Discharge home today after physical therapy if safe for home environment. Discharge Plan Discharge Plan Provider Discharge Comment: Follow up at [facility] in 2 weeks. Discharge orders & Medications Discharge Orders: Discharge (Order); Ordered 11/20/23 Ordered By: Pramod Franz Prescriptions: New acetaminophen 325 mg Tablet 650 mg PO Q6H PRN (Reason: Fever/Mild Pain (1-3)) Qty: 60 0RF docusate sodium 100 mg Capsule 100 mg PO BID Qty: 10 0RF oxycodone 10 mg Tablet 5 mg PO Q3H PRN (Reason: Pain, Severe (7-10)) Qty: 40 0RF Continued levothyroxine 175 mcg Tablet 175 mcg PO DAILY gabapentin 600 mg Tablet 1,200 mg PO BEDTIME gabapentin 600 mg Tablet 600 mg PO BID pantoprazole 40 mg Tablet,Delayed Release (Dr/Ec) 40 mg PO DAILY metoprolol succinate 25 mg Tablet Extended Release 24 Hr 25 mg PO BID magnesium oxide 400 mg magnesium Tablet 400 mg PO BEDTIME Discontinued hydrocodone-acetaminophen 7.5-325 mg Tablet 1 tab PO DAILY ibuprofen [Advil] 200 mg Tablet 200 - 400 mg PO BID PRN (Reason: Pain) Follow up/Referrals: Juan Webb PA-C [Advanced Clinical Review Nurse] - 12/05/23 3:00 pm (appt:12/04 @ 3:00 with Ras lamas @ [facility] ) Shani Majano MD [Physician] - (2 weeks as scheduled) Audrey Conroy MD [Primary Care Provider] - Diet/Activity/Treatments Diet: Diet as Tolerated Activity: Limit bending, twisting, lifting Skin/Wound/Dressing Care Report to your healthcare provider any signs of infection, such as:: chills, fever, night sweats, unusual drainage and unusual redness Dressing: Keep dressing clean and dry. Visit Report/Discharge Packet Instructions: DI for Prescription Opioid Use, DI for Transforaminal Lumbar Interbody Fusion Stand Alone Forms: Patient Portal/API, Stroke Signs & Symptoms, Surgery Discharge Discharge Data Primary Care Provider: Audrey Conroy Quality VTE Deep Vein Thrombosis/Pulmonary Embolism Present on Admission: No
[2023-11-20] MEDS: MAGNESIUM HYDROXIDE 30 ML UDC PO (07:51)
[2023-11-20] MEDS: polyethylene glycoL 3350 17 GM POWD.PACK PO (07:51)
[2023-11-20] MEDS: PANTOPRAZOLE DR 40 MG TABLET PO (08:01)
[2023-11-20] MEDS: DOCUSATE 100 MG CAPSULE PO (08:01)
[2023-11-20] MEDS: METOPROLOL ER 25 MG TABLET PO (08:01)
[2023-11-20] MEDS: GABAPENTIN 600 MG TABLET PO (08:02)
--- NOTE | 2023-11-20 08:30 | PT.IPTN ---
Current Diagnoses Spondylolisthesis, lumbar region (11/17/23) Spinal stenosis, lumbar region with neurogenic claudication (11/17/23) Surgery Performed Operation Date: 11/17/23 07:45 Actual Procedures p L3-4, L4-5 TLIF with posterior instrumentation-Robot(Not Applicable) - Shani Majano MD Physical Therapy Treatment Note M2 PT-IP Current Condition Start: 11/18/23 11:53 Freq: NEEDED Status: Active Protocol: Document 11/18/23 09:10 AB (Rec: 11/18/23 12:11 AB [id number]) Physical Therapy Current Condition Current Condition Evaluation Date 11/18/23 Treatment Diagnosis s/p L3-4, L4-5 TLIF; difficulty in walking Onset Date 11/17/23 M3 PT-IP Subjective Start: 11/18/23 11:53 Freq: NEEDED Status: Active Protocol: Document 11/20/23 09:07 TS (Rec: 11/20/23 09:14 TS [id number]) Subjective Physical Therapy Visit Type Type Treatment Note Visit Start Time 08:30 Visit Stop Time 08:51 Number of TERRAZZO SUPERVISOR Visits 3 Physical Therapy Visit Comments Patient Comments pt agreeable to PT. Therapy Pain Assessment Pain When Pain Assessed At Rest Pain Present Pain Present Pain Reported M4 PT-IP Mobility and Gait Start: 11/18/23 11:53 Freq: NEEDED Status: Active Protocol: Document 11/20/23 09:07 TS (Rec: 11/20/23 09:14 TS [id number]) PT-Bed Mobility Assessment Rolling Type of Rolling Log Rolling Level of Assist Standby Assistance Supine to Sit Supine to Sit Standby Assistance Sit to Supine Sit to Supine Standby Assistance Scooting Scooting to Edge of Bed Standby Assistance PT-Transfer Assessment Sit to and From Stand Sit to and from Stand Standby Assistance Equipment Transfer Assistive Device Gait Belt,Front Wheeled Walker Orthotic/Prosthetic Devices or Brace: Yes Comments Mobility Comments Pt is SBA for all bed mobility and demonstrates good awareness of his spinal precautions. He performed STS x2 from elevated bed with use of FWW SBA. Gait Assessment Gait Gait Assistance Required: Standby Assistance,1 Person Assist Distance (Feet) 50 Able to Maintain Weight Bearing Status Yes During Gait Assistive Devices Assistive Device Gait Belt,Front Wheeled Walker Orthotic/Prosthetic Devices or Brace: Yes Gait Deviations General Gait Pattern Decreased Stride Length, Decreased Feet Clearance,Step- to Gait Factors Limiting Gait Function Factors Limiting Gait Function Decreased Activity Tolerance, Decreased Strength,Limited Range of Motion,Pain,Poor Balance Comments Gait Comments pt continues to ambulate short distances in room with FWW and AFO's. Pt has no buckling or LOB, demosntrates improved quad act in RLE. PT-Balance Assessment Sitting Balance and Reactions Static Sitting Balance Ability Good Dynamic Sitting Balance Ability Fair Standing Balance and Reactions Static Standing Balance Ability Good Dynamic Standing Balance Ability Fair Device Used FWW M5 PT-IP Objective Assessments Start: 11/18/23 11:53 Freq: NEEDED Status: Active Protocol: Document 11/18/23 09:10 AB (Rec: 11/18/23 12:11 AB [id number]) Orientation Orientation/Cognition Level of Alertness Alert Orientation Name,Place,Situation Language Function Ability No Deficits Noted Safety Awareness Decreased Safety Awareness Memory Description Short Term Impaired Gross Range of Motion Lower Extremity ROM Assessment Within Functional Limits Strength Lower Extremity Strength Assessment Bilaterally Impaired Hip 4-/5 Knee 4-/5 Ankle 1/5 DF Coordination Assessment Gross Coordination Gross Coordination WNL Sensation Assessment Sensation Gross Sensation WNL Muscle Tone Muscle Tone WNL Yes M6 PT-IP Treatment Start: 11/18/23 11:53 Freq: NEEDED Status: Active Protocol: Document 11/20/23 09:07 TS (Rec: 11/20/23 09:14 TS [id number]) Physical Therapy Treatment Education Education Provided Safety M7 PT-IP Assessment and Plan Start: 11/18/23 11:53 Freq: NEEDED Status: Active Protocol: Document 11/20/23 09:07 TS (Rec: 11/20/23 09:14 TS [id number]) PT Summary Assessment and Plan Potential Rehabilitation Potential Fair Summary Impairments Pain,ROM,Strength,Balance, Coordination,Sensation,Tone, Cognition,Bed Mobility, Transfers,Gait,Activity Tolerance Progress Towards Goals Progressing Toward Goals Assessment Summary Hilton continues to make good progress with his mobility. He continues to SBA for all bed mobility and demonstrates good awareness of spinal precautions. He ambulated in room ~50'SBA with use of FWW, had no buckling or LOB. PT is recommending pt return home with assist from spouse. Goals Bed Mobility Goal Minimal Assistance Transfer Goal Minimal Assistance,Front Wheeled Walker Gait Goal Minimal Assistance,Front Wheel Walker Gait Distance 25 Other Goals improve bed mobility, transfers ambulation using FWW ~ 100 ft SBA Days to Meet Goals 10 Frequency of Treatment Frequency Of Treatment Twice a Day Treatment Plan Physical Therapy Treatment Plan Bed Mobility Training,Transfer Training,Gait Training, Therapeutic Exercise,Balance Retraining,Post Op Education, Discharge Planning,Hot or Cold Pack,Neuromuscular Re-ed, Coordination Retraining,Manual Therapy Precautions Lumbar Precautions Log Roll,No Twisting,Limit Bending,Lifting Restriction of 10 lbs,Gait Belt above Incisional Area Other Precautions falls Recommendations To Nursing Amount of Assist Needed 1 Person Assist Discharge Recommendations PT Discharge Recommendations Home with 24/ Assist Available Transportation Needs at Discharge Private Vehicle
[2023-11-20 08:39] VITALS: O2SAT 96
[2023-11-20 08:40] VITALS: BP 129/76; PULSE 68; RESP 16; TEMP 35.7; O2SAT 93
--- NOTE | 2023-11-20 09:50 | OT.IP.TRT ---
Current Diagnoses Spondylolisthesis, lumbar region (11/17/23) Spinal stenosis, lumbar region with neurogenic claudication (11/17/23) Surgery Performed Operation Date: 11/17/23 07:45 Actual Procedures p L3-4, L4-5 TLIF with posterior instrumentation-Robot(Not Applicable) - Shani Majano MD Occupational Therapy Treatment Note M2 OT-IP Current Condition Start: 11/18/23 10:10 Freq: Status: Active Protocol: Document 11/18/23 10:11 [facility] (Rec: 11/18/23 10:29 [facility] [id number]) Occupational Therapy Current Condition Current Condition Evaluation Date 11/18/23 Treatment Diagnosis S/P L3-4, L4-5 TLIF Diagnosis Onset Date 11/17/23 Post Operative Precautions Lumbar Precautions Log Roll,No Twisting,Limit Bending,Lifting Restriction of 10 lbs,Gait Belt above Incisional Area M3 OT- IP Subjective and Pain Start: 11/18/23 10:10 Freq: Status: Active Protocol: Document 11/20/23 09:31 [facility] (Rec: 11/20/23 09:50 [facility] [id number]) OT- Subjective Occupational Therapy Visit Type Type Treatment Note Visit Start Time 09:31 Visit Stop Time 09:42 Occupational Therapy Visit Comments Patient Comments Pt not wanting to shower at this time. Patient/Caregiver Goals TO go home. M4 OT- IP ADL's Start: 11/18/23 10:10 Freq: Status: Active Protocol: Document 11/20/23 09:31 [facility] (Rec: 11/20/23 09:50 [facility] [id number]) OT ADL-Dressing Comments OT Dressing Comments Pt's to assist pt for his socks, shoes and AFO. OT ADL-Toileting Comments OT Toileting Comments Pt has been able to get up to the bathroom. Suggested use of urinal at night. OT ADL-Bathing Comments OT Bathing Comments Suggested to use his walk in tub andn but sure not to soak in it and use on the shower head and to have his cover the dressing and assist for showering needs. M5 OT- IP IADL's Start: 11/18/23 10:10 Freq: Status: Active Protocol: Document 11/18/23 10:11 [facility] (Rec: 11/18/23 10:29 [facility] [id number]) OT-Instrumental Activities of Daily Living Deficits IADL Deficits Identified Deficits Home Safety Awareness Awareness of Need for Assistance at Home Good Awareness Ability to Problem Solve Emergency Able to Problem Solve Situations Home Safety Comments Pt has supportive significant other to assist at home pending pt's need for assist when ready for discharge. At this time pt needing extensive two person assist for all mobility needs. Meal Preparation Meal Preparation Caregiver Provides Assist Director Of Hotel Operations Director Of Hotel Operations Caregiver Provides Assist M6 OT- IP Functional Cognition Start: 11/18/23 10:10 Freq: Status: Active Protocol: Document 11/20/23 09:31 [facility] (Rec: 11/20/23 09:50 [facility] [id number]) Cognitive Factors Limiting Selfcare Function Cognitive Comments Cognitive Assessment Comments Pt a times a little insistent to his needs, but has good understanding to be able to assist the pt. M8 OT- IP Objective Assessments Start: 11/18/23 10:10 Freq: Status: Active Protocol: Document 11/18/23 10:11 [facility] (Rec: 11/18/23 10:29 [facility] [id number]) OT Gross Range of Motion Upper Extremity Range of Motion Assessment Within Functional Limits OT Strength Upper Extremity Strength Assessment Within Functional Limits M9 OT- IP Assessment and Plan Start: 11/18/23 10:10 Freq: Status: Active Protocol: Document 11/20/23 09:31 [facility] (Rec: 11/20/23 09:50 [facility] [id number]) OT Summary Assessment and Plan Potential Rehabilitation Potential Good Analytic Complexity at Evaluation Moderate Summary OT Impairments Pain,Range of Motion,Strength, Balance,Functional Mobility, Grooming,Dressing,Toileting, Bathing,Toilet Transfers, Shower Transfers,Activity Tolerance Progress Towards Goals Progressing Toward Goals Assessment Summary Pt's able to assist pt with good safety for all ADl and mobility needs. Pt to go home with his to assist. Goals Toileting Goal Standby Assistance Toilet Transfer Goal Independent Shower Transfer Goal Standby Assistance Days to Meet Goals 5 Frequency of Treatment Frequency Of Treatment Once a Day Treatment Plan OT Treatment Plan ADL Training,Functional Mobility,Patient/Family Education,Discharge Planning Discharge Recommendations OT Discharge Recommendations Home with Assistance Transportation Needs at Discharge Private Vehicle
--- NOTE | 2023-11-20 11:12 | PC.NURSE ---
Day shift: Paperwork signed and all questions answered. Pt has all personal belongings. Dressing changed prior to d/c. Op-sites w/ no s/s of infection. Cleared by PT. scripts sent electronic. Left unit via WC at approx [phone]. CMS remains intact w/ PPP as well.
--- NOTE | 2023-11-20 13:07 | CM.DPNOTE ---
DC Note Patient has been discharged home w/ assist from [facility], cleared by therapies for this plan. No needs from this CM team identified. JW
== END 2023-11-20 11:14 | disposition home or self-care (01) | DRG 455 ==
PROVIDERS: Admitting Provider Orthopaedic Surgery Orthopaedic Surgery of the Spine; PCP Family Medicine; Referring Provider Orthopaedic Surgery Orthopaedic Surgery of the Spine; Visit Provider Orthopaedic Surgery Orthopaedic Surgery of the Spine
PROC: 0SG10AJ Fusion of 2 or more Lumbar Vertebral Joints with Interbody Fusion Device, Posterior Approach, Anterior Column, Open Approach (ICD-10-PCS; principal; 2023-11-17 07:45)
DX: M43.16 Spondylolisthesis, lumbar region (principal); M48.061 Spinal stenosis, lumbar region without neurogenic claudication; M96.1 Postlaminectomy syndrome, not elsewhere classified; E03.9 Hypothyroidism, unspecified; K21.9 Gastro-esophageal reflux disease without esophagitis; I10 Essential (primary) hypertension; Z87.891 Personal history of nicotine dependence
CPT/HCPCS: 36415; 72100; 76000; 85014; 85018; 97163; 97166; 97530; 97535; C1713; C9290; J0171; J0690; J2704; J3010; J3360